=== PATIENT | female | born 1980 | race Caucasian/White ===

== ENCOUNTER 2018-12-22 01:45 | Emergency (ER) | payer MEDICAID ==
[~2018-12-22] VITALS: Ht 165.1 cm; Wt 68.0 kg
[2018-12-22] MEDS ORDERED: ONDANSETRON HCL 4 MG/2 ML VIAL ONE (02:41)
[2018-12-22] MEDS ORDERED: HYDROmorphone HCL 2 MG/ML VL ONE (02:41)
[2018-12-22] MEDS ORDERED: HYDROmorphone HCL 2 MG/ML VL IV ONE ×2 (03:00→05:30)
[2018-12-22] MEDS ORDERED: ONDANSETRON HCL 4 MG/2 ML VIAL IV ONE ×2 (03:00→05:30)
[2018-12-22] MEDS ORDERED: SODIUM CHLORIDE 0.9% 1,000 ML IV ONE (07:32)
[2018-12-22 09:31] LABS: Basophils # (auto) 0 uL; Basophils % (auto) 0.3 % (0.0-2.0); Eosinophils # (auto) 0.1 uL; Eosinophils % (auto) 1.3 % (0.0-7.0); Hemoglobin 12.2 g/dL (12.2-16.2); Lymphocytes # (auto) 2.6 uL; Lymphocytes % (auto) 38.2 % (10.0-50.0); Mean Corpuscular Hemoglobin 31.1 pg (28.0-32.0); Mean Corpuscular Hgb Conc. 32.2 g/dL (32.0-36.0); Mean Corpuscular Volume 96.5 fL (80.0-100.0); Monocytes # (auto) 0.4 uL; Monocytes % (auto) 5.1 % (0.0-12.0); Neutrophils # (auto) 3.8 uL; Neutrophils % (auto) 55.1 % (37.0-80.0); Nucleated Red Blood Cells % 0.1 %; Platelet Count (auto) 403 10^3/uL (140-450); Red Blood Cells 3.94 10^6/uL (4.0-5.20); Red Cell Distribution Width 16.5 % (11.8-14.3); White Blood Cell 6.9 10^3/uL (4.4-10.8)
[2018-12-22 09:45] LABS: Albumin 3.5 g/dL (3.4-5.0); Calcium 8.8 mg/dL (8.5-10.1); Potassium 4.4 mmol/L (3.5-5.1)
[2018-12-22 09:49] LABS: BUN/Creatinine Ratio 36.4; Bilirubin, Total 0.1 mg/dL (0.2-1.0); Total Protein 8.4 g/dL (6.4-8.2)
[2018-12-22 09:52] LABS: INR 0.87 (0.9-1.15); Partial Thromboplastin Time 23.2 sec (23.78-33.04); Prothrombin Time 9.4 sec (9.27-12.13)
[2018-12-22] MEDS ORDERED: LEVETIRACETAM 500 MG TAB PO ONE (11:15)
[2018-12-22] MEDS ORDERED: LORazepam 0.5 MG TAB PO ONE (11:45)
[2018-12-22] MEDS ORDERED: METHADONE HCL 10 MG TAB PO ONE (11:45)
[2018-12-22 11:54] VITALS: BP 145/86
== END 2018-12-22 11:34 ==
LOC: EDBD 01:45 → ER 01:50
DX: R10.84 Generalized abdominal pain (principal); K62.5 Hemorrhage of anus and rectum; M32.9 Systemic lupus erythematosus, unspecified; Z85.048 Personal history of other malignant neoplasm of rectum, rectosigmoid junction, and anus; Z59.0 Homelessness; Z88.0 Allergy status to penicillin; Z88.8 Allergy status to other drugs, medicaments and biological substances; Z90.710 Acquired absence of both cervix and uterus
CPT/HCPCS: 36415; 74176; 80053; 82150; 82962; 83690; 83735; 84443; 85025; 85610; 85730; 96374; 96375; 96376; 99284; J1170; J2405; J7030